=== PATIENT | male | born 1970 | race Caucasian/White ===

== ENCOUNTER 2017-12-21 02:02 | Emergency (ER) | payer SELFPAY ==
[~2017-12-21] VITALS: Ht 160 cm; Wt 67.2 kg
[2017-12-21 02:05] VITALS: BP 139/79
--- NOTE | 2017-12-21 02:06 | NUR ---
PT PRESENTS TO ED WITH INSECT IN LEFT EAR. PT STATES HE SAW A COCKROACH RUN INTO HIS LEFT EAR AND FELT/HEARD IT MOVING IN HIS EAR. INSECT SEEN IN LEFT EAR. PT SATES 7/10 PAIN. HEARING MUFFLED. NO REDNESS OR DRAINAGE IN LEFT EAR. VSS. POSITIONED IN BED FOR COMFORT. SIDE RAIL UP. VSS. ER MD AWARE. CONTINUE TO MONITOR.
--- NOTE | 2017-12-21 02:06 | NUR ---
TO BED # 3 AMBULATORY, REPORT GIVEN TO CHARI DILLARD
--- NOTE | 2017-12-21 02:23 | NUR ---
Dr. Randhawa evaluating patient at bedside.
[2017-12-21 03:06] VITALS: BP 139/79
--- NOTE | 2017-12-21 03:06 | NUR ---
Patient discharged with v/s stable. Written and verbal after care instructions given and explained. Patient alert, oriented and verbalized understanding of instructions. Ambulatory with steady gait. All questions addressed prior to discharge. ID band removed. Patient advised to follow up with PMD. Rx of Cortisporin Otic Suspension given. Patient educated on indication of medication including possible reaction and side effects. Opportunity to ask questions provided and answered.
== END 2017-12-21 02:06 | disposition home or self-care (01) ==
LOC: MED 02:02
DX: T16.2XXA Foreign body in left ear, initial encounter (principal); X58.XXXA Exposure to other specified factors, initial encounter; Y93.89 Activity, other specified; Y92.89 Other specified places as the place of occurrence of the external cause; Y99.8 Other external cause status
CPT/HCPCS: 69200; 99283; 99284